=== PATIENT | male | born 1995 | race Caucasian/White ===

== ENCOUNTER 2020-12-31 09:37 | Inpatient (IN) | payer SELFPAY ==
[~2020-12-31] VITALS: Ht 177.8 cm; Wt 68.9 kg
[2020-12-31] MEDS ORDERED: PIPERACILLIN/TAZ 3.375G PREMIX 50 ML IV ONE (10:00)
[2020-12-31] MEDS ORDERED: SODIUM CHLORIDE 0.9% 1,000 ML IV ONE (10:00)
[2020-12-31 10:09] LABS: BASOPHILS % 0.6 % (0.0-2.0); EOSINOPHILS % 1.9 % (0.0-5.0); HEMATOCRIT. 47.3 % (42.0-52.0); HEMOGLOBIN. 15.7 g/dL (14.0-18.0); LYMPHOCYTES % 9.4 % (20.0-50.0); MEAN CORPUSCULAR HEMOGLOBIN 29.9 pg (28.0-32.0); MEAN CORPUSCULAR VOLUME 89.7 fL (80.0-94.0); MEAN PLATELET VOLUME 8.3 fl (7.4-10.4); MONOCYTES % 5.9 % (2.0-8.0); NEUTROPHILS % 82.2 % (40.0-76.0); PLATELET 301 x1000/uL (130-400); RED BLOOD CELL COUNT 5.27 mill/uL (4.7-6.1); RED CELL DISTRIBUTION WIDTH 12.9 % (11.6-14.6)
[2020-12-31 10:16] LABS: CHLORIDE 102 mEq/L (98-107)
[2020-12-31 10:18] LABS: PROTHROMBIN TIME 11.1 sec (9.6-11.0)
[2020-12-31] MEDS ORDERED: ACETAMINOPHEN 325MG TABLET PO PRN (14:30)
[2020-12-31] MEDS ORDERED: ONDANSETRON HCL 4MG/2ML INJ IV PRN (14:30)
[2020-12-31] MEDS ORDERED: KETOROLAC 30MG/ML VIAL IV PRN (14:30)
[2020-12-31] MEDS ORDERED: VANCOMYCIN 1 G PREMIX 200 ML IV SCH (15:00)
[2020-12-31 16:00] VITALS: BP 102/53
[2020-12-31 16:30] VITALS: BP 102/53
[2020-12-31] MEDS ORDERED: PIPERACILLIN/TAZOBACTAM 3.375 G in DEXT 5% WATER 100 ML IV SCH (18:00)
[2020-12-31 20:00] VITALS: BP 102/53
[2020-12-31] MEDS: PIPERACILLIN/TAZOBACTAM 3.375 G in DEXT 5% WATER 100 ML IV SCH (20:58)
[2020-12-31] MEDS: VANCOMYCIN 1 G PREMIX 200 ML IV SCH (23:37)
[2021-01-01] VITALS: BP 93/55
[2021-01-01] MEDS: PIPERACILLIN/TAZOBACTAM 3.375 G in DEXT 5% WATER 100 ML IV SCH ×4 (02:15→22:33)
[2021-01-01] MEDS: VANCOMYCIN 1 G PREMIX 200 ML IV SCH ×3 (07:02→21:54)
[2021-01-01 08:00] VITALS: BP 88/42
[2021-01-01 09:16] LABS: BASOPHILS % 0.8 % (0.0-2.0); EOSINOPHILS % 3.8 % (0.0-5.0); HEMATOCRIT. 42.5 % (42.0-52.0); LYMPHOCYTES % 17.7 % (20.0-50.0); MEAN CORPUSCULAR HEMOGLOBIN 29.8 pg (28.0-32.0); MEAN CORPUSCULAR VOLUME 90.3 fL (80.0-94.0); MEAN PLATELET VOLUME 8.2 fl (7.4-10.4); MONOCYTES % 8.4 % (2.0-8.0); NEUTROPHILS % 69.3 % (40.0-76.0); PLATELET 262 x1000/uL (130-400); RED CELL DISTRIBUTION WIDTH 12.8 % (11.6-14.6)
[2021-01-01 09:29] LABS: CHLORIDE 102 mEq/L (98-107)
[2021-01-01 12:00] VITALS: BP 93/60
[2021-01-01 16:00] VITALS: BP 101/63
[2021-01-01] MEDS: SODIUM HYPOCHLORITE 0.125% 473ML SOLUTION TOP SCH (16:00)
[2021-01-01] MEDS ORDERED: PIPERACILLIN/TAZOBACTAM 3.375 G in DEXT 5% WATER 100 ML IV SCH (18:00)
[2021-01-01 20:00] VITALS: BP 104/55
[2021-01-02] VITALS: BP 99/60
[2021-01-02] MEDS ORDERED: PIPERACILLIN/TAZOBACTAM 3.375 G in DEXT 5% WATER 100 ML IV SCH (01:00)
[2021-01-02 04:00] VITALS: BP 100/61
[2021-01-02] MEDS: PIPERACILLIN/TAZOBACTAM 3.375 G in DEXT 5% WATER 100 ML IV SCH ×2 (05:07→12:00)
[2021-01-02 05:10] LABS: CHLORIDE 103 mEq/L (98-107)
[2021-01-02 05:20] LABS: VANCOMYCIN TROUGH 10.4 ug/mL (5.0-10.0)
[2021-01-02] MEDS: VANCOMYCIN 1 G PREMIX 200 ML IV SCH (06:01)
[2021-01-02 08:00] VITALS: BP 108/64
[2021-01-02] MEDS ORDERED: VANCOMYCIN 1 G PREMIX 200 ML IV SCH (12:00)
[2021-01-02] MEDS: SODIUM HYPOCHLORITE 0.125% 473ML SOLUTION TOP SCH (12:00)
[2021-01-02] MEDS ORDERED: SULF1TAB48 MT (12:48)
[2021-01-02] MEDS ORDERED: AMOX-424 MT (12:48)
== END 2021-01-02 16:10 | disposition left against medical advice (07) | DRG 720 ==
LOC: ER 10:26 → 6EST 13:53 → ENRESERV 14:04
PROVIDERS: ADMIT Internal Medicine; ATTEND Internal Medicine
DX: A41.9 Sepsis, unspecified organism (principal); L03.115 Cellulitis of right lower limb; R65.21 Severe sepsis with septic shock; S81.811A Laceration without foreign body, right lower leg, initial encounter; F17.210 Nicotine dependence, cigarettes, uncomplicated; X58.XXXA Exposure to other specified factors, initial encounter; F15.90 Other stimulant use, unspecified, uncomplicated; Z71.51 Drug abuse counseling and surveillance of drug abuser; Y93.89 Activity, other specified; Y92.89 Other specified places as the place of occurrence of the external cause; Y99.8 Other external cause status
CPT/HCPCS: 36415; 71045; 73590; 80048; 80053; 80202; 85025; 93005; 93971; 99285; J2543; J3370; J7030; J7060